=== PATIENT | male | born 1970 | race Caucasian/White ===

== ENCOUNTER 2016-07-17 12:58 | Observation (INO) | payer BC, OTHER ==
--- NOTE | ~2016-07-17 | DS ---
Discharge Summary [facility] [address] [place]. [address] NAME: SEVERIANO ROACH : 72 STATUS : DIS Franky PAT#: [id number] AGE: 46 ADM/REG DATE : 07/17/16 MR#: [id number] REPORT SERV DATE: 07/20/16 DICTATED BY: DATE: REPORT STATUS : Draft TRANSCRIBED BY: MODL DATE: 07/19/16 ADMISSION DATE: 07/17/2016 DISCHARGE DATE: 07/19/2016 The patient was admitted to the [facility]. CONSULTANTS: There were no consultants. DISCHARGE DIAGNOSES: 1. Intractable nausea/vomiting - resolved. Suspect due to gastroparesis. Formal diagnosis could not be made during the hospitalization because the patient took Reglan, with improvement. 2. Hematemesis x1 - nonrecurrent, no evidence of active gastrointestinal bleeding. For outpatient re-evaluation and possible gastrointestinal follow up. 3. Gallstones - for outpatient HIDA scan. 4. Uncontrolled insulin-dependent diabetes mellitus type 2. Hemoglobin A1c 10.7. 5. Bradycardia - suspect due to outpatient clonidine dosing. Improved with reduction in clonidine dose. 6. Hypertension - initially uncontrolled, improved with addition of HILDA inhibitor - for outpatient labs. IMAGING AND DIAGNOSTICS: 1. Portable chest x-ray, 07/17/2016, for chest pain shows clear lungs, heart size normal. 2. Portable chest x-ray, 07/18/2016, shows normal chest. 3. CT of abdomen and pelvis without contrast, 07/17/2016, shows gallstones. Accelerated atherosclerotic changes for age. Diverticulosis. PERTINENT LABS: Arterial blood gas with pH of 7.49, pCO2 of 39, PO2 of 67, and oxygen saturation 97% on room air. White blood cell count 11.4, hemoglobin 15.6, hematocrit 45.3, platelets 222, and INR 1.02. Liver enzymes normal. Lipase normal. Multiple troponins normal. TSH 0.99. Procalcitonin negative. BNP 123. Hemoglobin A1c 10.7. Urinalysis, trace ketones. Urine drug screen, positive for opiates and cannabinoids. BRIEF HISTORY: For full details, please see the previously dictated history of present illness by me on 07/17/2016. This is a 46-year-old white male with extensive past medical history who presented to the emergency department with intractable nausea and vomiting. His at the bedside reported initially bilious emesis and possible episode of hematemesis before admission, progressing to dry heaves after approximately 13 episodes of emesis. The patient also endorsed some epigastric fullness and abdominal pain. He was admitted to the Hospitalist Service for further management of symptoms. HOSPITAL COURSE: The patient was placed on IV fluids, IV Reglan, and IV Protonix. He was also placed on IV antiemetics, and symptomatically improved by the morning of 07/18/2016. He had a CT of abdomen and pelvis which showed gallstones but no acute cholecystitis, and thus was not felt to require urgent inpatient surgery evaluation here. He is recommended for an outpatient HIDA scan and consideration of elective cholecystectomy in the future. Discharge Summary [address] [address] NAME: SEVERIANO ROACH : 72 STATUS : DIS Franky PAT#: [id number] AGE: 46 ADM/REG DATE : 07/17/16 MR#: [id number] REPORT SERV DATE: 07/20/16 DICTATED BY: DATE: REPORT STATUS : Draft TRANSCRIBED BY: MODL DATE: 07/19/16 We attempted to obtain a gastric emptying study here but could not be completed because the patient needed to be off Reglan for 48 hours prior to the test. He was so symptomatically improved at that point that we were able to advance his diet to a regular diabetic diet, and thus he was not felt to require inpatient gastric emptying study. He had no recurrence of hematemesis and did not demonstrate any active GI bleeding. Specifically, he had no hematochezia or melena. His hemoglobin remained stable throughout the hospitalization with values between 14 and 15. He is symptomatically improved and was not felt to require inpatient GI evaluation, but the possibility of outpatient referral was discussed with patient and primary care provider prior to discharge. I suspect that the patient's main diagnosis was gastroparesis due to uncontrolled insulin- dependent diabetes mellitus type 2. He was counseled on the need to obtain better blood sugar control in the outpatient setting, and his primary care provider will continue to work on this with him, as the patient reports symptomatic hypoglycemic episodes whenever his blood sugars are close to 200. In the emergency department, the patient was bradycardic, in the 40s. His home dose of clonidine was noted to be excessively high. This was decreased to more standard dosing, and his bradycardia resolved. Subsequently, he did have some hypertension and was started on lisinopril 5 mg p.o. daily given concomitant history of diabetes mellitus type 2. The patient has extensive medical history including COPD with ongoing tobacco abuse, peripheral arterial disease, chronic lymphedema of bilateral lower extremities, diastolic congestive heart failure which was compensated at this admission, peripheral neuropathy due to diabetes, history of sleep apnea, not on CPAP, history of a TIA, and severe osteoarthritis. All of these medical conditions were stable during the admission. DISCHARGE DISPOSITION: The patient is being discharged to home in the care of his supportive with no specific activity restrictions. He should stick with a diabetic diet given his uncontrolled diabetes, and he will need to call Dr. Sandoval's office to follow up within the next one to two weeks. DISCHARGE MEDICATIONS: Include 1. Neurontin 600 mg p.o. three times a day. 2. NovoLog sliding scale 3 times a day with meals. 3. Methadone 55 mg p.o. daily. 4. Phenergan 25 mg p.o. four times a day. 5. Clonidine 0.1 mg p.o. every 8 hours. 6. Protonix 40 mg p.o. q.a.c. breakfast. 7. Reglan 10 mg p.o. q.a.c. t.i.d. and at bedtime p.r.n. nausea or abdominal pain. 8. Lisinopril 5 mg p.o. daily. 9. Novolin 70/30 - home dose subcu twice a day. 10.Zantac 150 mg p.o. daily as needed for reflux. 11.Aspirin 81 mg p.o. daily as needed for chest pain. 12.Menthol nasal spray p.r.n. congestion. 13.Prior dose of clonidine was discontinued as was Advil because of possible gastritis. Discharge Summary [address] [place]. [address] NAME: SEVERIANO ROACH : 72 STATUS : DIS Franky PAT#: [id number] AGE: 46 ADM/REG DATE : 07/17/16 MR#: [id number] REPORT SERV DATE: 07/20/16 DICTATED BY: DATE: REPORT STATUS : Draft TRANSCRIBED BY: LOWELL DATE: 07/19/16 Forty minutes was spent in completion of the discharge. BLANCA/LOWELL Edi Tellez M.D. / [id number] CC: Isabelle Jones M.D. Nicholas Salt, M.D.
--- NOTE | ~2016-07-17 | HP ---
History And Physical [facility] [address] [place]. [address] NAME: SEVERIANO ROACH : 72 STATUS : ADM Franky PAT#: [id number] AGE: 46 ADM/REG DATE : 07/17/16 MR#: [id number] REPORT SERV DATE: 07/17/16 DICTATED BY: DATE: REPORT STATUS : Draft TRANSCRIBED BY: MODL DATE: 07/17/16 DATE OF ADMISSION: 07/17/2016 [facility] CHIEF COMPLAINT: Intractable nausea and vomiting. HISTORY OF PRESENT ILLNESS: Mr. Roach is a 46-year-old white male, who suffers from poorly controlled diabetes, with last known hemoglobin A1c of 12.0. He is a patient of Dr. Rah Sandoval and recently has been undergoing some insulin adjustments, but his at the bedside reports that he is "brittle" and develops symptomatic hypoglycemia at any time his sugars are less than 200. This has limited his blood sugar control and thus his blood sugars at home have recently been ranging from 300 to 400. He does suffer with some chronic abdominal pain and a sense of abdominal fullness, primarily in the epigastrium. He also suffers from chronic nausea and vomiting for which he takes Phenergan 25 mg p.o. four times a day scheduled. Yesterday, he began to develop increasing nausea and vomiting, and symptoms were refractory to scheduled Phenergan and a Phenergan suppository, so he and his proceeded to the emergency department for evaluation. He has had approximately 12 or 13 episodes of emesis today, which he describes as bilious, progressing now to a point of dry heaves. He reports seeing blood in his emesis on one occasion, after multiple episodes of retching. He has not had any diarrhea. His reports decreased urine output over the past few days despite taking his Lasix from home. The patient also is complaining of some chest pain here in the emergency department, but troponin and EKG are negative for cardiac etiology. Also in the emergency department, the patient has been noted to be bradycardic. His reports that this is relatively new finding, and that he has had heart rates between 40 and 50 for the past few weeks. Of note, he takes excessively high doses of clonidine at home for blood pressure control, which could be contributing. For the intractable nausea and vomiting and bradycardia, the patient is referred to the Hospitalist Service for admission. REVIEW OF SYSTEMS: A full 14-point review of systems is negative except as dictated in the history of present illness. PAST MEDICAL HISTORY: 1. Insulin-dependent diabetes mellitus type 2 - uncontrolled. 2. Chronic pain syndrome - currently on methadone. 3. Hypertension. 4. COPD with ongoing tobacco abuse. 5. Morbid obesity. 6. Peripheral arterial disease. History And Physical [address] [address] NAME: SEVERIANO ROACH : 72 STATUS : ADM Franky PAT#: [id number] AGE: 46 ADM/REG DATE : 07/17/16 MR#: [id number] REPORT SERV DATE: 07/17/16 DICTATED BY: DATE: REPORT STATUS : Draft TRANSCRIBED BY: LOWELL DATE: 07/17/16 7. Peripheral neuropathy. 8. Significant degenerative joint disease. 9. Osteoarthritis. 10.History of diastolic dysfunction. 11.History of transient ischemic attack. 12.History of sleep apnea - not utilizing CPAP. 13.Chronic lymphedema. PAST SURGICAL HISTORY: Includes hemorrhoidectomy and a right knee surgery. 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 ALLERGIES: MULTIPLE INCLUDING TALWIN, DILANTIN, RIFAMPIN, CIMETIDINE, , ULTRAM, NUBAIN, , STADOL, NARCAN, ZOFRAN, . CURRENT MEDICATIONS: Include: 1. Insulin 70/30 unknown dosage twice a day. 2. Sliding scale NovoLog with meals. 3. Potassium chloride 20 mEq p.o. daily. 4. Phenergan 25 mg p.o. four times a day. 5. Zantac 150 mg p.o. daily as needed. 6. Methadone 60 mg p.o. daily. 7. Menthol inhaled p.r.n. congestion. 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 His of 20 years is here at the bedside. She herself is disabled from end-stage lupus. They have one child who is 16-year-old. The patient continues to smoke heavily, but does not utilize any alcohol or illicit substances. FAMILY HISTORY: Pertinent for coronary artery disease and diabetes. PHYSICAL EXAMINATION: VITAL SIGNS: Blood pressure 175/56, pulse of 68, respirations 8, and oxygen saturations 100% on room air. GENERAL: This is a morbidly obese white male, in distress due to nausea and vomiting. HEENT: Normocephalic, atraumatic. Pupils are equally round and reactive to light. No scleral icterus. No conjunctival injection. Sinuses are nontender to palpation. Oropharynx reveals dry mucosa. Posterior pharynx is clear with no erythema or exudate. NECK: Supple. No jugular venous distention. No lymphadenopathy. No bruits. CARDIOVASCULAR: Regular rate and rhythm. No murmurs, rubs, or gallops. LUNGS: Clear to auscultation bilaterally. No wheezes or crackles. No rhonchi. ABDOMEN: Soft with epigastric tenderness to palpation. Decreased bowel sounds x4 quadrants, but no hepatosplenomegaly. No suggestion of ascites. EXTREMITIES: 1+ to 2+ pitting edema in bilateral lower extremities. No cyanosis or clubbing. No Homans sign. SKIN: Extensively tattooed, decreased skin turgor, no rash or skin breakdown. NEUROLOGIC: Cranial nerve testing could not be performed. The patient moves all four History And Physical [address] [place]. [address] NAME: SEVERIANO ROACH : 72 STATUS : ADM Franky PAT#: [id number] AGE: 46 ADM/REG DATE : 07/17/16 MR#: [id number] REPORT SERV DATE: 07/17/16 DICTATED BY: DATE: REPORT STATUS : Draft TRANSCRIBED BY: MODL DATE: 07/17/16 extremities without difficulty and against gravity. Strength is grossly intact. Sensations are in intact to fine touch and temperature in all four limbs, with diminished sensation in the feet bilaterally. LABORATORY DATA: Blood gas shows pH 7.49, pCO2 of 39, pO2 of 67, oxygen saturations 97% on room air. Portable chest x-ray is normal. White blood cell count 11.4, hemoglobin and hematocrit are normal, and platelets 222. INR 1.0. Hepatic function panel shows a glucose of 282 and a calcium of 8.2, otherwise normal liver enzymes. Lipase is normal. Troponin is negative. BNP is 123. An EKG shows normal sinus rhythm with a rate of 60 and no evidence of ischemic changes. IMPRESSION: 1. Intractable nausea and vomiting - rule out gastroparesis, rule out peptic ulcer disease, rule out cholecystitis. 2. Possible hematemesis. 3. Atypical chest pain. 4. Bradycardia - suspect clonidine induced. 5. Hypertension. 6. Uncontrolled insulin-dependent diabetes mellitus type 2 - reports "brittle.". 7. History of kidney stones. 8. Chronic pain syndrome, on methadone. 9. Past medical history as outlined. PLAN: 1. Observation and admission to [address] [place] [address] attending doctor, Dr. Edi Tellez. 2. Attempt symptomatic management with IV fluids, IV Phenergan and scheduled oral Phenergan, IV Reglan. Evaluate for causes of symptoms with a hemoglobin A1c, Gastroccult emesis, urinalysis, urine drug screen, gastric emptying study, and a CT abdomen and pelvis. 3. Non-pharmacologic DVT prophylaxis. 4. Hold nonsteroidal anti-inflammatories and aspirin. 5. Hold clonidine, utilize hydralazine or Norvasc for blood pressure control. 6. The patient has been placed on IV Protonix pending further evaluation for peptic ulcer disease. Additional recommendations pending results of above. BLANCA/LOWELL Edi Tellez M.D. History And Physical [address] [address] NAME: SEVERIANO ROACH : 72 STATUS : ADM Franky PAT#: [id number] AGE: 46 ADM/REG DATE : 07/17/16 MR#: [id number] REPORT SERV DATE: 07/17/16 DICTATED BY: DATE: REPORT STATUS : Draft TRANSCRIBED BY: LOWELL DATE: 07/17/16 / [id number] CC: Isabelle Jones M.D.
[~2016-07-17 12:58] MED LIST: ASAB PO; ATARAX50B PO; BENADRYL 50 MG50 MG PO; CAT2 PO; CRANBERRY PO; FISH OIL PO; FISH-EPA1000 MG PO; GLUCPH PO; INSNOV7030 SC; K-TABS10 MEQ PO; L20 PO; LORCET PO; METHATAB10 PO; NEUR300 PO; NEUR600 PO; NOVOLOGMIX SQ; PR25 PO; PRIN20 PO; PROAIR HFA INH; ROXICODONE30 MG PO; ZANAFLEX 4 MG TA4 MG PO
[2016-07-17 13:34] LABS: ALLENS TEST Pos; BE (BASE EXCESS) 5.3 MEQ/L (0 +/- 2.5); CARBOXYHEMOGLOBIN 5.6 % (0-3); HCO3 (ACTUAL BICARBONATE) 28.8 MEQ/L (23-27); HEMOBLOGIN CONTENT 15.8 G/DL (14-18); INSTRUMENT SERIAL # 8087; METHEMOGLOBIN 0.3 % (0-3); O2 CONTENT 20.1 VOL% (18-24); PCO2 (CO2 TENSION) 39 MMHG (35-45); PO2 (O2 TENSION) 67 MMHG (79-93); SAMPLE Arterial; pH 7.49 (7.37-7.43)
[2016-07-17 15:17] LABS: BASOPHILS 0.1 %; BASOPHILS ABSOLUTE 0.01 10/3/uL (0.0-0.16); EOSINOPHILS 0.2 %; EOSINOPHILS ABSOLUTE 0.02 10/3/uL (0.0-0.53); ER CBC TAT 0 Hrs 12 Mins; HEMATOCRIT 45.3 % (40.0-51.0); HEMOGLOBIN 15.6 g/dL (13.6-17.8); IMMATURE GRANULOCYTES 0.1 %; IMMATURE GRANULOCYTES ABSOLUTE 0.01 10/3/uL (0.0-0.11); LYMPHOCYTES ABSOLUTE 1.48 10/3/uL (0.67-4.30); MEAN CORPUS HGB CONC 34.4 g/dL (32.0-36.0); MEAN CORPUSCULAR HEMOGLOB 29.7 pg (26.0-34.0); MEAN CORPUSCULAR VOLUME 86.3 fL (80-100); MONOCYTES 3.1 %; MONOCYTES ABSOLUTE 0.35 10/3/uL (0.21-1.20); NEUTROPHILS 83.5 %; NEUTROPHILS ABSOLUTE 9.49 10/3/uL (2.02-8.40); PLATELET COUNT 222 10/3/uL (150-400); RBC DISTRIBUTION WIDTH 12.9 % (12.0-16.0); RED CELL COUNT 5.25 10/6/uL (4.7-6.1); WHITE BLOOD CELLS 11.4 10/3/uL (4.5-10.5)
[2016-07-17 15:19] LABS: MANUAL DIFF NO %
[2016-07-17 15:25] LABS: PARTIAL THROMBO TIME 26.4 SEC (22.5-37.2)
[2016-07-17 15:34] LABS: ALBUMIN 3.5 G/DL (3.5-5.0); BUN (BLOOD UREA NITROGEN) 15 MG/DL (6-23); CALCIUM, SERUM 8.2 MG/DL (8.5-10.4); CHEST PAIN PROFILE TAT 0 Hrs 29 Mins; CHLORIDE, SERUM 101 MMOL/L (96-112); CO2 (CARBON DIOXIDE) 30 MMOL/L (24-34); CREATININE 1.09 MG/DL (0.70-1.30); DIRECT BILIRUBIN 0.1 MG/DL (0.0-0.4); GFR AFRICAN AMERICAN 95 ML/MIN (>=60); GFR NON AFRICAN AMERICAN 82 ML/MIN (>=60); GLUCOSE, SERUM 282 MG/DL (60-99); INDIRECT BILIRUBIN(NOT ORDER) 0.3 MG/DL (0.1-0.9); POTASSIUM, SERUM 4.3 MMOL/L (3.5-5.3); SGOT(AST) 17 U/L (5-40); SGPT(ALT) 27 U/L (5-65); SODIUM, SERUM 140 MMOL/L (135-148); TOTAL BILIRUBIN 0.4 MG/DL (0-1.2); TOTAL PROTEIN 6.4 G/DL (6.0-8.5); TROPONIN I <0.02 NG/ML (<0.05)
[2016-07-17 15:35] LABS: ALKALINE PHOSPHATASE 110 U/L (45-117)
[2016-07-17] MEDS ORDERED: L40 PO (15:56)
[2016-07-17] MEDS ORDERED: CAT2 PO (15:56)
[2016-07-17] MEDS ORDERED: PR25 PO (15:56)
[2016-07-17] MEDS ORDERED: KLOR-CON M2020 MEQ PO (15:57)
[2016-07-17] MEDS ORDERED: [UNRECOGNIZED DRUG - OTHER] PO (15:57)
[2016-07-17] MEDS ORDERED: NEUR600 PO (15:57)
[2016-07-17] MEDS ORDERED: HALF81 PO (15:58)
[2016-07-17] MEDS ORDERED: ADVIL PO (15:58)
[2016-07-17] MEDS ORDERED: ZANTAC 150 PO (15:58)
[2016-07-17] MEDS ORDERED: MENTHOL NAS (16:00)
[2016-07-17 20:24] LABS: ULTRASENSITIVE TSH 0.992 MCIU/ML (0.358-3.740)
[2016-07-17 21:10] LABS: PROCALCITONIN <0.05 ng/mL (<0.5)
[2016-07-18 05:31] LABS: GLYCOHEMOGLOBIN (HbA1c) 10.7 % (4.7-6.1)
[2016-07-18 06:42] LABS: BASOPHILS 0.1 %; BASOPHILS ABSOLUTE 0.01 10/3/uL (0.0-0.16); EOSINOPHILS 0 %; HEMATOCRIT 42.1 % (40.0-51.0); HEMOGLOBIN 14.4 g/dL (13.6-17.8); IMMATURE GRANULOCYTES 0.2 %; IMMATURE GRANULOCYTES ABSOLUTE 0.02 10/3/uL (0.0-0.11); LYMPHOCYTES 10.7 %; LYMPHOCYTES ABSOLUTE 1.17 10/3/uL (0.67-4.30); MANUAL DIFF NO %; MEAN CORPUS HGB CONC 34.2 g/dL (32.0-36.0); MEAN CORPUSCULAR HEMOGLOB 29.3 pg (26.0-34.0); MEAN CORPUSCULAR VOLUME 85.6 fL (80-100); MONOCYTES 6.2 %; MONOCYTES ABSOLUTE 0.68 10/3/uL (0.21-1.20); NEUTROPHILS 82.8 %; NEUTROPHILS ABSOLUTE 9.01 10/3/uL (2.02-8.40); PLATELET COUNT 216 10/3/uL (150-400); RBC DISTRIBUTION WIDTH 13.1 % (12.0-16.0); RED CELL COUNT 4.92 10/6/uL (4.7-6.1); WHITE BLOOD CELLS 10.9 10/3/uL (4.5-10.5)
[2016-07-18 06:59] LABS: A/G RATIO 0.9 (0.7-1.9); ALKALINE PHOSPHATASE 90 U/L (45-117); BUN (BLOOD UREA NITROGEN) 14 MG/DL (6-23); CALCIUM, SERUM 7.9 MG/DL (8.5-10.4); CHLORIDE, SERUM 103 MMOL/L (96-112); CO2 (CARBON DIOXIDE) 24 MMOL/L (24-34); CREATININE 0.97 MG/DL (0.70-1.30); GFR AFRICAN AMERICAN 109 ML/MIN (>=60); GFR NON AFRICAN AMERICAN 94 ML/MIN (>=60); GLOBULIN 3.2 G/DL (2.5-4.1); GLUCOSE, SERUM 303 MG/DL (60-99); SGOT(AST) 11 U/L (5-40); SGPT(ALT) 25 U/L (5-65); SODIUM, SERUM 139 MMOL/L (135-148); TOTAL BILIRUBIN 0.6 MG/DL (0-1.2); TOTAL PROTEIN 6.2 G/DL (6.0-8.5); TROPONIN I <0.02 NG/ML (<0.05)
[2016-07-18 07:10] LABS: ASCORBIC ACID (UR NOT ORDER) NEG (NEG); BILIRUBIN, URINE NEGATIVE (NEG); KETONE, URINE 80 MG/DL (NEG); LEUKOCYTE ESTERASE(NOT OR NEG (NEG); WBC (NOT ORDERED) (RFLEX) < 1 (0-5)
[2016-07-18 07:24] LABS: AMPHETAMINES (NOT ORD) NEG (NEG); BARBITURATES (NOT ORDERED NEG (NEG); BENZODIAZEPINES (NOT ORD) NEG (NEG); CANNABINOIDS (THC) POS (NEG); COCAINE (NOT ORDERED) NEG (NEG); OPIATES POS (NEG); PHENCYCLIDINE(PCP) NEG (NEG); TRICYCLICS NEG (NEG)
[2016-07-19] MEDS ORDERED: REG PO (17:29)
[2016-07-19] MEDS ORDERED: PROTONIX PO (17:32)
== END 2016-07-19 20:49 | disposition home or self-care (01) ==
LOC: ER 12:58 → 5SO 17:38
PROVIDERS: Emergency Medicine; Hospitalist; Nurse Practitioner Family
DX: K92.0 Hematemesis (principal); E11.9 Type 2 diabetes mellitus without complications; R07.89 Other chest pain; I10 Essential (primary) hypertension; J44.9 Chronic obstructive pulmonary disease, unspecified; E66.01 Morbid (severe) obesity due to excess calories; I73.9 Peripheral vascular disease, unspecified; G62.9 Polyneuropathy, unspecified; M19.90 Unspecified osteoarthritis, unspecified site; G47.30 Sleep apnea, unspecified; Z86.73 Personal history of transient ischemic attack (TIA), and cerebral infarction without residual deficits; Z98.890 Other specified postprocedural states; Z79.4 Long term (current) use of insulin; Z88.8 Allergy status to other drugs, medicaments and biological substances; F17.200 Nicotine dependence, unspecified, uncomplicated; Z87.442 Personal history of urinary calculi; G89.4 Chronic pain syndrome
CPT/HCPCS: 36600; 71010; 74176; 80048; 80053; 80076; 80305; 81001; 82805; 82962; 83036; 83690; 83735; 83880; 84145; 84443; 84484; 85025; 85610; 85730; 93005; 96374; 96375; 96376; 99285; A9270-GY; C9113; G0378; J0360; J1170; J2550; J2765

== ENCOUNTER 2017-01-18 11:43 | Observation (INO) | payer BC, OTHER ==
[~2017-01-18] VITALS: Ht 170.2 cm; Wt 125.3 kg
--- NOTE | ~2017-01-18 | CN ---
Consultation Report [facility] [address] [place]. [address] NAME: SEVERIANO ROACH : 72 STATUS : ADM Franky PAT#: [id number] AGE: 46 ADM/REG DATE : 01/18/17 MR#: [id number] REPORT SERV DATE: 01/19/17 DICTATED BY: OLIVER TRINIDAD DATE: 01/19/17 REPORT STATUS : Draft TRANSCRIBED BY: LOWELL DATE: 01/19/17 SURGICAL CONSULTATION NOTE DATE OF CONSULTATION: 01/19/[address] Zabala. SUBJECTIVE: The patient is a 46-year-old hypertensive and insulin-dependent diabetic male, who presented to [facility] with upper abdominal discomfort. Cardiac workup was negative, however, ultrasound shows gallstones. He states that at this time almost everything he eats makes him nauseated. OBJECTIVE: VITAL SIGNS: He is afebrile. Vital signs are stable today with white count of 10. ABDOMEN: He has good bowel sounds, soft, with minimal right upper quadrant pain to palpation with no rebound. LABORATORY DATA: Lab shows white count 10 with hemoglobin and hematocrit of 14.2 and 41.1, with BMP normal. ASSESSMENT: Chronic cholecystitis with gallstones and insulin-dependent diabetes mellitus. PLAN: To transfer to [facility] to expedite surgical care and plan for laparoscopic cholecystectomy with cholangiogram in a.m. PRINCE/LOWELL Oliver Trinidad M.D. / [id number] CC: MD Rah Tsang M.D. Janak Naik, M.D.
--- NOTE | ~2017-01-18 | IDS ---
Interim Discharge Summary [facility] [address] [place]. [address] NAME: SEVERIANO ROACH : 72 STATUS : DIS Franky PAT#: [id number] AGE: 46 ADM/REG DATE : 01/18/17 MR#: [id number] REPORT SERV DATE: 01/19/17 DICTATED BY: DIANA GARRETT DATE: 01/19/17 REPORT STATUS : Draft TRANSCRIBED BY: MODL DATE: 01/19/17 ADMISSION DATE: 01/18/2017 DISCHARGE DATE: 01/19/2017 DATE OF TRANSFER: 01/19/2017. RECEIVING FACILITY: [facility]. TRANSFERRING PHYSICIAN: Diana Garrett MD RECEIVING PHYSICIAN: Dr. Best, General Surgery. REASON FOR TRANSFER: For urgent cholecystectomy to be performed by Dr. Best at [facility]. TRANSFER DIAGNOSES: 1. Symptomatic cholelithiasis. 2. Insulin-treated diabetes mellitus type 2. 3. Obesity. 4. Chronic obstructive pulmonary disease. 5. Hypertension. 6. Obstructive sleep apnea. 7. Chronic congestive heart failure. 8. Tobacco abuse. 9. Hepatic steatosis. 10.Tobacco abuse. 11.Atrial fibrillation. BRIEF HISTORY OF PRESENT ILLNESS: For detailed HPI, please make reference to Dr. Eliezer Iniguez's dictation on 01/19/2017. In brief, this is a 46-year-old male with medical history of COPD, obstructive sleep apnea, diabetes mellitus, uncontrolled hypertension, who presented to the emergency department with complaints of nausea, vomiting, and right upper quadrant abdominal pain. Vital signs on presentation, blood pressure was initially 221/104, received IV hydralazine in the ER, repeat blood pressure at the time of admission was 150/70, temperature 98.7, pulse 63 beats per minute, respirations 16, saturating 98% on room air. Physical exam was significant for right upper quadrant tenderness. LABORATORY DATA: Significant for glucose of 403, BUN and creatinine 15 and 1.1 respectively. Lipase was 164. AST, ALT, total bilirubin within normal limits. CBC; 10.8. CT scan of the abdomen was consistent with cholelithiasis. No other acute intra-abdominal process identified. An assessment of intractable nausea and vomiting possibly due to symptomatic cholelithiasis versus diabetic gastroparesis was made in the ER, the patient was admitted to the Hospitalist Service. HOSPITAL COURSE: 1. Symptomatic cholelithiasis. The patient is known to have a history of cholelithiasis, Interim Discharge Summary [address] [address] NAME: SEVERIANO ROACH : 72 STATUS : DIS Franky PAT#: [id number] AGE: 46 ADM/REG DATE : 01/18/17 MR#: [id number] REPORT SERV DATE: 01/19/17 DICTATED BY: DIANA GARRETT DATE: 01/19/17 REPORT STATUS : Draft TRANSCRIBED BY: LOWELL DATE: 01/19/[address] Best as an outpatient, however, was unable to keep the appointment due to the ill health of his . Hence, on presentation, Dr. Best was consulted, recommended urgent cholecystectomy. Dr. Best requested the patient to be transferred from [facility] to [facility] because [facility] currently had a full schedule in the surgical suite, hence the patient's surgery will be performed by Dr. Best at [facility]. 2. Insulin-treated diabetes mellitus type 2. The patient is currently receiving Levemir 15 units b.i.d., scheduled aspart at 6 units premeal and level 2 corrective insulin. 3. COPD. No evidence of acute COPD exacerbation at this time. 4. Chronic systolic heart failure. No evidence of acute decompensated heart failure. 5. Obstructive sleep apnea. This will be imperative for the patient to have CPAP at night prior to surgery. TRANSFER CONDITION: Stable. CODE STATUS: Full code. IOO/MODL Diana Garrett MD / [id number] CC: MD Rah Tsang M.D.
--- NOTE | ~2017-01-18 | HP ---
History And Physical [id number] [facility] [place]. [address] NAME: SEVERIANO ROACH : 72 STATUS : ADM Franky PAT#: [id number] AGE: 46 ADM/REG DATE : 01/18/17 MR#: [id number] REPORT SERV DATE: 01/19/17 DICTATED BY: REZA HURST DATE: 01/18/17 REPORT STATUS : Draft TRANSCRIBED BY: MODL DATE: 01/18/17 DATE OF ADMISSION: 01/18/2017 CHIEF COMPLAINT: Nausea, vomiting, and right abdominal pain. HISTORY OF PRESENT ILLNESS: A 46-year-old male with a past medical history of COPD, sleep apnea, hypertension, diabetes type 2, uncontrolled, with reporting A1c of 13 who presents after having constant right abdominal pain since last night after eating Tamazight. Pain became worse this morning, has not taken any of his blood pressure medications and noted to have a high blood pressure. Not being able to take his pain medications. Symptoms were sharp right upper quadrant, lasting approximately 24 hours with nausea, vomiting, chills, weakness, swelling, and dizziness. No chest pain or palpitations. No diarrhea. No wheezing, shortness of breath, headaches, but very difficult to answer questions. The patient reports he is in so much pain and majority of questions answered by family. The patient was scheduled to have followup gallbladder surgery, Dr. Best in six weeks ago, but is in hospice secondary to lupus complications and did not feel comfortable going to surgery while she was sick and unfortunately had to cancel this appointment for symptoms are worsened with palpation, no relieving symptoms. Symptoms still currently present and feels like he had most recent admission. The patient has also had not eaten anything today and has not yet taken his blood sugar medications. ADDITIONAL REVIEW OF SYSTEMS: A 10-point review of systems negative except for that noted in HPI. PAST MEDICAL HISTORY: Type 2 diabetes, uncontrolled; A1c at least 13; chronic pain on methadone; hypertension; COPD with chronic tobacco use one and a half pack per day; morbid obesity; peripheral arterial disease; peripheral neuropathy; significant DJD; osteoarthritis; diastolic heart dysfunction; TIAs; sleep apnea, not using CPAP; chronic lymphedema. SURGICAL HISTORY: Hemorrhoidectomy, right knee surgery, chronic nonunion fracture, proximal left tib. ALLERGIES: MULTIPLE WITH TALWIN, DILANTIN, RIFAMPIN, CIMETIDINE, DALGAN, ULTRAM, NUBAIN, BUPRENEX, STADOL, NARCAN, ZOFRAN, REVEX, ANTIVIRALS, AND . CURRENT MEDICATIONS: Clonidine, Lasix, Neurontin, Novolin 70/30 on a sliding scale insulin, methadone, Klor-Con, and Phenergan. SOCIAL HISTORY: Former RN, now disabled. on hospice for end-stage lupus. One and a half pack per day smoker. No alcohol or illicits. FAMILY HISTORY: Coronary artery disease and diabetes. PHYSICAL EXAMINATION: VITAL SIGNS: The patient's blood pressure initially at 221/104, currently 150/70; History And Physical [address] [place]. [address] NAME: SEVERIANO ROACH : 72 STATUS : ADM Franky PAT#: [id number] AGE: 46 ADM/REG DATE : 01/18/17 MR#: [id number] REPORT SERV DATE: 01/19/17 DICTATED BY: REZA HURST DATE: 01/18/17 REPORT STATUS : Draft TRANSCRIBED BY: LOWELL DATE: 01/18/17 temperature 98.7; pulse 63; respirations 16; O2 sats 98% on room air. GENERAL: Moderate discomfort, writhing in abdominal discomfort. HEENT: Eyes, no scleral icterus. EOMI. ENT, red facial flushing, but mildly dry mucous membranes. Tongue midline. RESPIRATORY: Clear to auscultation. No wheezes. Currently mildly decreased in lower lung hickey. CV: Regular rate. No rubs. Mild edema in lower legs. No JVD. GI: Soft, but tender to palpation in the right upper quadrant, but this is somewhat almost generalized in all four quadrants. Bowel sounds positive. : Negative CVA. MUSCULOSKELETAL: Moves all extremities. Does have 2+ edema bilateral lower extremities. SKIN: Warm and dry. HEME: No bleeding or bruising. Neuro: Alert and oriented, but minimal interaction with physical exam secondary to abdominal discomfort, but is able to find comfort and positional changes. PSYCHIATRIC: Mildly anxious but at times pain limiting for information, defers to for majority of answering questions. LABORATORY DATA: Magnesium 1.4, troponin negative. INR 1.0. Gallbladder ultrasound: Gallstones, fatty liver enlarged. Common bile duct of 0.47. CT abdomen and pelvis, no evidence of acute abnormality of abdomen and pelvis, possible diverticulosis with no diverticulitis, slight hepatomegaly, possible hepatic steatosis difficult to confirm due to artifact, lactate 3.5. Urinalysis negative leukocyte esterase and nitrite greater than 500 glucose, specific gravity 1.033. CMP: Glucose of 403, but a BUN and creatinine of 15 and 1.11, bicarb 26, sodium 137, lipase 164. AST and ALT within normal limits. T-bilirubin of 0.5, alkaline phosphatase 124. CBC: WBC count 10.8, H and H 15.2 and 44.1, platelets of 201. EKG sinus aleks with a prolonged QTc with QTc of 574, ventricular rate of 57. ASSESSMENT AND PLAN: 1. Diabetic gastroparesis. 2. Accelerated hypertension. 3. Lactate elevation. 4. Hypomagnesemia. 5. Uncontrolled diabetes. 6. Fatty liver. 7. Intractable nausea and vomiting. 8. Chronic pain dependence. 9. Prolonged QTc. 10.Abnormal gallbladder history. 11.Tobacco use. 12.Morbid obesity. 13.Chronic obstructive pulmonary disease. 14.Diastolic heart failure history. PLAN: History And Physical [address] [address] NAME: SEVERIANO ROACH : 72 STATUS : ADM Franky PAT#: [id number] AGE: 46 ADM/REG DATE : 01/18/17 MR#: [id number] REPORT SERV DATE: 01/19/17 DICTATED BY: REZA HURST DATE: 01/18/17 REPORT STATUS : Draft TRANSCRIBED BY: LOWELL DATE: 01/18/17 1. For diabetic gastroparesis, control blood sugar, serial monitoring, does have mild lactate elevation. Reglan and Relistor as tolerated. Bowel rest. We will additionally have surgery evaluation with lactate elevations and serial monitor. 2. Accelerated hypertension, on p.r.n.'s, has not taken blood pressure medications but is improved notably with p.r.n.'s given in emergency room. Does have history of bradycardia with clonidine increased dose. We will place on clonidine patch, pain control, and treat above. 3. Lactate elevation serial monitoring. IV fluids. Notify Dr. Anderson in a.m. Does not appear to have acute abdomen due to improvement while in the emergency room. We will again continue medical treatment. Serial monitoring of lactate. 4. Hypomagnesemia, IV replacement, unable to tolerate p.o. 5. Uncontrolled diabetes. Start Levemir changed from sliding scale 70/30 unclear this dosing schedule. reports A1c is up to 13, most recent check. 6. Fatty liver. Check hep panel. Check GGT. 7. Intractable nausea and vomiting, Phenergan and Relistor. 8. Chronic pain dependence on methadone. We will need to monitor this as the patient does have additional prolonged QT history, will monitor on telemetry. 9. Abnormal gallbladder seen by Dr. Best, was to have surgery approximately 6 weeks ago but on hospice secondary to end-stage lupus missed appointments. Family requesting Dr. Best if possible, we will check GGT. 10.Tobacco use, one and a half pack per day. Nicotine Patch. 11.Morbid obesity. Needs weight loss. 12.COPD, needs to stop smoking. O2 DuoNeb as tolerated. 13.CHF history. Does have edema but not in acute exacerbation. Monitor I's and O's. We will need to optimize medically prior to discharge as tolerated, once acute issues resolved. 14.Sleep apnea. The patient not compliant with CPAP. DDN/MODL Reza Hurst MD / [id number] CC: Diana Laird MD
[~2017-01-18 11:43] MED LIST changes: +ADVIL PO; +HALF81 PO; +KLOR-CON M2020 MEQ PO; +L40 PO; +MENTHOL NAS; +PROTONIX PO; +REG PO; +ZANTAC 150 PO; +[UNRECOGNIZED DRUG - OTHER] PO
[2017-01-18 13:07] LABS: BASOPHILS 0.2 %; BASOPHILS ABSOLUTE 0.02 10/3/uL (0.0-0.16); EOSINOPHILS 0.3 %; EOSINOPHILS ABSOLUTE 0.03 10/3/uL (0.0-0.53); ER CBC TAT 0 Hrs 09 Mins; HEMATOCRIT 44.1 % (40.0-51.0); HEMOGLOBIN 15.2 g/dL (13.6-17.8); IMMATURE GRANULOCYTES 0.4 %; IMMATURE GRANULOCYTES ABSOLUTE 0.04 10/3/uL (0.0-0.11); LYMPHOCYTES 13.4 %; LYMPHOCYTES ABSOLUTE 1.45 10/3/uL (0.67-4.30); MANUAL DIFF NO %; MEAN CORPUS HGB CONC 34.5 g/dL (32.0-36.0); MEAN CORPUSCULAR HEMOGLOB 29.6 pg (26.0-34.0); MEAN PLATELET VOLUME 10.7 fL (9.2-13.0); MONOCYTES 5.4 %; MONOCYTES ABSOLUTE 0.58 10/3/uL (0.21-1.20); NEUTROPHILS 80.3 %; PLATELET COUNT 201 10/3/uL (150-400); RBC DISTRIBUTION WIDTH 12.9 % (12.0-16.0); RED CELL COUNT 5.13 10/6/uL (4.7-6.1); WHITE BLOOD CELLS 10.8 10/3/uL (4.5-10.5)
[2017-01-18 13:23] LABS: A/G RATIO 1.1 (0.7-1.9); ALBUMIN 3.4 G/DL (3.5-5.0); BUN (BLOOD UREA NITROGEN) 15 MG/DL (6-23); CALCIUM, SERUM 8.7 MG/DL (8.5-10.4); CHLORIDE, SERUM 102 MMOL/L (96-112); CO2 (CARBON DIOXIDE) 26 MMOL/L (24-34); CREATININE 1.11 MG/DL (0.70-1.30); GFR AFRICAN AMERICAN 92 ML/MIN (>=60); GFR NON AFRICAN AMERICAN 80 ML/MIN (>=60); POTASSIUM, SERUM 4.6 MMOL/L (3.5-5.3); SGOT(AST) 16 U/L (5-40); SGPT(ALT) 25 U/L (5-65); SODIUM, SERUM 137 MMOL/L (135-148); TOTAL BILIRUBIN 0.5 MG/DL (0-1.2); TOTAL PROTEIN 6.4 G/DL (6.0-8.5)
[2017-01-18 13:28] LABS: ALKALINE PHOSPHATASE 124 U/L (45-117); GLUCOSE, SERUM 403 MG/DL (60-99)
[2017-01-18 13:40] LABS: ASCORBIC ACID (UR NOT ORDER) NEG (NEG); BILIRUBIN, URINE NEGATIVE (NEG); ER URINALYSIS TAT 0 Hrs 07 Mins; KETONE, URINE 20 MG/DL (NEG); LEUKOCYTE ESTERASE(NOT OR NEG (NEG); NITRITE (URINE) NEG (NEG); WBC (NOT ORDERED) (RFLEX) 1 (0-5)
[2017-01-18 13:53] LABS: LACTATE 3.5 MMOL/L (0.3-2.4)
[2017-01-18] MEDS ORDERED: CAT2 PO (17:03)
[2017-01-18] MEDS ORDERED: PR25 PO (17:04)
[2017-01-18] MEDS ORDERED: NEUR600 PO (17:04)
[2017-01-18] MEDS ORDERED: NOVOLOG SC (17:05)
[2017-01-18] MEDS ORDERED: INSNOV7030 SC (17:05)
[2017-01-18 18:45] LABS: PARTIAL THROMBO TIME 23.6 SEC (22.5-37.2); PROTIME (NOT ORD) 13.3 SEC (12.0-14.5)
[2017-01-18 18:56] LABS: TROPONIN I <0.02 NG/ML (<0.05)
[2017-01-18] MEDS ORDERED: METHADONE10 MG/5 ML PO (19:41)
[2017-01-18] MEDS ORDERED: L20 PO (19:42)
[2017-01-18] MEDS ORDERED: KLOR-CON M2020 MEQ PO (19:43)
[2017-01-19 03:40] LABS: BASOPHILS 0.1 %; BASOPHILS ABSOLUTE 0.01 10/3/uL (0.0-0.16); EOSINOPHILS 0 %; HEMATOCRIT 41.1 % (40.0-51.0); HEMOGLOBIN 14.2 g/dL (13.6-17.8); IMMATURE GRANULOCYTES 0.3 %; IMMATURE GRANULOCYTES ABSOLUTE 0.03 10/3/uL (0.0-0.11); LYMPHOCYTES 12.7 %; LYMPHOCYTES ABSOLUTE 1.27 10/3/uL (0.67-4.30); MANUAL DIFF NO %; MEAN CORPUS HGB CONC 34.5 g/dL (32.0-36.0); MEAN CORPUSCULAR HEMOGLOB 29.6 pg (26.0-34.0); MEAN CORPUSCULAR VOLUME 85.6 fL (80-100); MEAN PLATELET VOLUME 10.7 fL (9.2-13.0); MONOCYTES 4.9 %; MONOCYTES ABSOLUTE 0.49 10/3/uL (0.21-1.20); NEUTROPHILS ABSOLUTE 8.22 10/3/uL (2.02-8.40); PLATELET COUNT 217 10/3/uL (150-400); RBC DISTRIBUTION WIDTH 13.3 % (12.0-16.0)
[2017-01-19 03:55] LABS: ALBUMIN 3.2 G/DL (3.5-5.0); BUN (BLOOD UREA NITROGEN) 12 MG/DL (6-23); CALCIUM, SERUM 8.2 MG/DL (8.5-10.4); CHLORIDE, SERUM 104 MMOL/L (96-112); CO2 (CARBON DIOXIDE) 25 MMOL/L (24-34); CREATININE 1.19 MG/DL (0.70-1.30); DIRECT BILIRUBIN 0.1 MG/DL (0.0-0.4); GAMMA GT 22 U/L (5-85); GFR AFRICAN AMERICAN 85 ML/MIN (>=60); GFR NON AFRICAN AMERICAN 73 ML/MIN (>=60); GLOBULIN 3.2 G/DL (2.5-4.1); INDIRECT BILIRUBIN(NOT ORDER) 0.5 MG/DL (0.1-0.9); POTASSIUM, SERUM 4.1 MMOL/L (3.5-5.3); SGOT(AST) 15 U/L (5-40); SGPT(ALT) 26 U/L (5-65); SODIUM, SERUM 140 MMOL/L (135-148); TOTAL BILIRUBIN 0.6 MG/DL (0-1.2); TOTAL PROTEIN 6.4 G/DL (6.0-8.5); TROPONIN I <0.02 NG/ML (<0.05)
[2017-01-19 03:59] LABS: ALKALINE PHOSPHATASE 90 U/L (45-117); GLUCOSE, SERUM 320 MG/DL (60-99)
[2017-01-19 04:06] LABS: B NATRIURETIC PEPTIDE (BNP) 576.9 PG/ML (< 100.0)
[2017-01-19 05:00] LABS: PROCALCITONIN 0.07 ng/mL (<0.5)
== END 2017-01-19 14:06 | disposition short-term general hospital (02) ==
LOC: ENRESERVTM → ENRESERV → ENRESERVDT → CANRESERV → ER 11:43 → CDU1 20:38 → CDU2 20:38
PROVIDERS: Nurse Practitioner Family; Student in an Organized Health Care Education/Training Program
DX: K80.10 Calculus of gallbladder with chronic cholecystitis without obstruction (principal); E11.43 Type 2 diabetes mellitus with diabetic autonomic (poly)neuropathy; K31.84 Gastroparesis; R74.0 Nonspecific elevation of levels of transaminase and lactic acid dehydrogenase [LDH]; E83.42 Hypomagnesemia; K76.0 Fatty (change of) liver, not elsewhere classified; G89.29 Other chronic pain; E66.01 Morbid (severe) obesity due to excess calories; J44.9 Chronic obstructive pulmonary disease, unspecified; E11.42 Type 2 diabetes mellitus with diabetic polyneuropathy; I50.22 Chronic systolic (congestive) heart failure; I11.0 Hypertensive heart disease with heart failure; G47.33 Obstructive sleep apnea (adult) (pediatric); I48.91 Unspecified atrial fibrillation; I89.0 Lymphedema, not elsewhere classified; Z98.890 Other specified postprocedural states; Z86.79 Personal history of other diseases of the circulatory system; Z88.5 Allergy status to narcotic agent; Z88.8 Allergy status to other drugs, medicaments and biological substances
CPT/HCPCS: 74176; 76705; 80053; 80076; 81001; 82962; 82977; 83036; 83605; 83690; 83735; 83880; 84145; 84484; 85025; 85610; 85730; 87040; 93005; 96365; 96372; 96374; 96375; 96376; 99285; A9270-GY; G0378; J0360; J1170; J2550; J2765; J3475